=== PATIENT | female | born 1990 | race American Indian/Alaskan Native ===

== ENCOUNTER 2017-12-02 13:06 | Emergency (ER) | payer OTHER ==
[2017-12-02 13:44] VITALS: BP 141/99
[2017-12-02] MEDS ORDERED: SUBLIMAZE IV ONE (14:59)
--- NOTE | 2017-12-02 15:05 | Emergency Department Report ---
Blank Doc - Documentation Documentation: She presents with severe abdominal pain I will give IV pain medicine CBC BMP lipase and CT scan with contrast.
[2017-12-02 15:27] LABS: Basophils % (Auto) 0.1 % (0.0-1.8); Eosinophils % (Auto) 0.1 % (0.0-4.3); Lymphocytes % (Auto) 10.3 % (13.4-35.0); Mean Corpuscular HGB Conc 30 % (30-34); Mean Corpuscular Volume 81 fl (79-97); Monocytes # (Auto) 0.8 K/mm3 (0.0-0.8); Monocytes % (Auto) 4.2 % (0.0-7.3); Platelet Count 259 K/mm3 (140-440); Red Blood Count 3.84 M/mm3 (3.65-5.03); Red Cell Distribution Width 18.2 % (13.2-15.2)
[2017-12-02 15:28] LABS: Hematocrit 31.3 % (30.3-42.9); Hemoglobin 9.4 gm/dl (10.1-14.3); Mean Corpuscular Hemoglobin 25 pg (28-32)
[2017-12-02 15:30] LABS: Alanine Aminotransferase 9 units/L (7-56); BUN/Creatinine Ratio 15; Blood Urea Nitrogen 9 mg/dL (7-17); Calcium 9.1 mg/dL (8.4-10.2); Hemolysis Index 1
[2017-12-02] MEDS ORDERED: NACL 0.9% 1000 ML 1,000 ML IV ONE (15:41)
[2017-12-02] MEDS ORDERED: ZOFRAN IV ONE (15:41)
--- NOTE | 2017-12-02 16:03 | Emergency Department Report ---
ED Abdominal Pain HPI - General Chief Complaint: Abdominal Pain Stated Complaint: ABDOMINAL PAIN Time Seen by Provider: 12/02/17 14:57 Source: patient Mode of arrival: Ambulatory Limitations: No Limitations - History of Present Illness Initial Comments: She presents with severe abdominal pain I will give IV pain medicine CBC BMP lipase and CT scan with contrast. MD Complaint: abdominal pain Onset/Timin -: days(s) Location: diffuse, LLQ Radiation: LLQ, RLQ Migration to: RLQ Severity: moderate Severity scale (0 -10): 7 Quality: aching, sharp Consistency: constant Improves With: nothing Worsens With: movement Associated Symptoms: nausea. denies: vomiting, diarrhea, fever, chills, constipation, dysuria, hematemesis, hematuria - Related Data LMP (females 10-50): this week Previous Rx's Medication Instructions Recorded Last Taken Type Lidocaine Viscous 2% [Xylocaine 10 ml MM Q3HR PRN #240 ml 12/11/13 Unknown Rx Viscous 2%] Acetaminophen/Codeine [Tylenol 1 tab PO Q6H PRN #14 tab 02/05/15 Unknown Rx /Codeine # 3 tab] Ibuprofen [Motrin 600 MG tab] 600 mg PO Q8H PRN #60 tablet 02/05/15 Unknown Rx Sulfamethoxazole/Trimethoprim 1 each PO BID #14 tablet 02/05/15 Unknown Rx [Bactrim DS TAB] Amoxicillin/K Clav Tab [Augmentin 1 tab PO BID #14 tab 06/18/16 Unknown Rx 875 mg] Erythromycin [Erythromycin Ophth 1 applic OP QID #1 tube 06/18/16 Unknown Rx Oint] Doxycycline [Vibramycin CAP] 100 mg PO Q12HR #20 capsule 12/02/17 Unknown Rx metroNIDAZOLE [Flagyl] 500 mg PO Q12HR #20 tab 12/02/17 Unknown Rx Allergies Allergy/AdvReac Type Severity Reaction Status Date / Time No Known Allergies Allergy Verified 12/02/17 13:41 ED Review of Systems ROS: Stated complaint: ABDOMINAL PAIN Other details as noted in HPI Constitutional: denies: chills, fever Eyes: denies: eye pain, eye discharge, vision change ENT: denies: ear pain, throat pain Respiratory: denies: cough, shortness of breath, wheezing Cardiovascular: denies: chest pain, palpitations Endocrine: no symptoms reported Gastrointestinal: abdominal pain, nausea Genitourinary: denies: urgency, dysuria, discharge Musculoskeletal: denies: back pain, joint swelling, arthralgia Skin: denies: rash, lesions Neurological: denies: headache, weakness, paresthesias Psychiatric: denies: anxiety, depression Hematological/Lymphatic: denies: easy bleeding, easy bruising ED Past Medical Hx - Past Medical History Previous Medical History?: Yes Additional medical history: anemia - Surgical History Past Surgical History?: Yes Additional Surgical History: cyst removal - Social History Smoking Status: Current Every Day Smoker Substance Use Type: Alcohol - Medications Home Medications: Home Medications Medication Instructions Recorded Confirmed Last Taken Type Lidocaine Viscous 2% [Xylocaine 10 ml MM Q3HR PRN #240 ml 12/11/13 Unknown Rx Viscous 2%] Acetaminophen/Codeine [Tylenol 1 tab PO Q6H PRN #14 tab 02/05/15 Unknown Rx /Codeine # 3 tab] Ibuprofen [Motrin 600 MG tab] 600 mg PO Q8H PRN #60 tablet 02/05/15 Unknown Rx Sulfamethoxazole/Trimethoprim 1 each PO BID #14 tablet 02/05/15 Unknown Rx [Bactrim DS TAB] Amoxicillin/K Clav Tab [Augmentin 1 tab PO BID #14 tab 06/18/16 Unknown Rx 875 mg] Erythromycin [Erythromycin Ophth 1 applic OP QID #1 tube 06/18/16 Unknown Rx Oint] Doxycycline [Vibramycin CAP] 100 mg PO Q12HR #20 capsule 12/02/17 Unknown Rx metroNIDAZOLE [Flagyl] 500 mg PO Q12HR #20 tab 12/02/17 Unknown Rx ED Physical Exam - General Limitations: No Limitations General appearance: alert, in no apparent distress - Head Head exam: Present: atraumatic, normocephalic - Eye Eye exam: Present: normal appearance - ENT ENT exam: Present: mucous membranes moist - Neck Neck exam: Present: normal inspection - Respiratory Respiratory exam: Present: normal lung sounds bilaterally. Absent: respiratory distress, wheezes, stridor - Cardiovascular Cardiovascular Exam: Present: regular rate, normal rhythm. Absent: systolic murmur, diastolic murmur, rubs, gallop - GI/Abdominal GI/Abdominal exam: Present: tenderness (LLQ ), guarding (mild guarding LLQ ), normal bowel sounds. Absent: rebound, organomegaly, mass, bruit, pulsatile mass , hernia - Rectal Rectal exam: Present: deferred - Extremities Exam Extremities exam: Present: normal inspection, full ROM - Back Exam Back exam: Present: full ROM. Absent: tenderness, CVA tenderness (R), CVA tenderness (L), muscle spasm, paraspinal tenderness, vertebral tenderness, rash noted - Neurological Exam Neurological exam: Present: alert, oriented X3, CN II-XII intact, normal gait, reflexes normal - Psychiatric Psychiatric exam: Present: normal affect, normal mood - Skin Skin exam: Present: warm, dry, intact, normal color. Absent: rash ED Course Vital Signs 12/02/17 13:41 Temperature 98.5 F Pulse Rate 122 H Respiratory 16 Rate Blood Pressure 141/99 O2 Sat by Pulse 100 Oximetry ED Medical Decision Making - Lab Data Result diagrams: 12/02/17 15:05 12/02/17 15:05 Laboratory Tests 12/02/17 12/02/17 12/02/17 15:05 15:05 15:05 WBC 19.3 H RBC 3.84 Hgb 9.4 L Hct 31.3 MCV 81 MCH 25 L MCHC 30 RDW 18.2 H Plt Count 259 Lymph % (Auto) 10.3 L [place] % (Auto) 4.2 Eos % (Auto) 0.1 Baso % (Auto) 0.1 Lymph # 2.0 [place] # 0.8 Eos # 0.0 Baso # 0.0 Seg Neutrophils % 85.3 H Seg Neutrophils # 16.5 H Sodium 137 Potassium 3.4 L Chloride 102.3 Carbon Dioxide 23 Anion Gap 15 BUN 9 Creatinine 0.6 L Estimated GFR > 60 BUN/Creatinine Ratio 15 Glucose 99 Calcium 9.1 Total Bilirubin 0.40 AST 15 ALT 9 Alkaline Phosphatase 60 Total Protein 7.5 Albumin 4.0 Albumin/Globulin Ratio 1.1 Lipase HCG, Quant < 2 Urine Color Urine Turbidity Urine pH Ur Specific [place] Urine Protein Urine Glucose (UA) Urine Ketones Urine Blood Urine Nitrite Ur Reducing Substances Urine Bilirubin Urine Ictotest Urine Urobilinogen Ur Leukocyte Esterase Urine WBC (Auto) Urine RBC (Auto) U Epithel Cells (Auto) Urine Bacteria (Auto) Urine Mucus 12/02/17 12/02/17 15:46 Unknown WBC RBC Hgb Hct MCV MCH MCHC RDW Plt Count Lymph % (Auto) [place] % (Auto) Eos % (Auto) Baso % (Auto) Lymph # [place] # Eos # Baso # Seg Neutrophils % Seg Neutrophils # Sodium Potassium Chloride Carbon Dioxide Anion Gap BUN Creatinine Estimated GFR BUN/Creatinine Ratio Glucose Calcium Total Bilirubin AST ALT Alkaline Phosphatase Total Protein Albumin Albumin/Globulin Ratio Lipase 11 L HCG, Quant Urine Color Yellow Urine Turbidity Hazy Urine pH 5.0 Ur Specific [place] 1.024 Urine Protein 30 mg/dl Urine Glucose (UA) Neg Urine Ketones 20 Urine Blood Neg Urine Nitrite Neg Ur Reducing Substances Not Reportable Urine Bilirubin Neg Urine Ictotest Not Reportable Urine Urobilinogen < 2.0 Ur Leukocyte Esterase Lg Urine WBC (Auto) 66.0 H Urine RBC (Auto) 1.0 U Epithel Cells (Auto) 10.0 Urine Bacteria (Auto) 1+ Urine Mucus 3+ - Radiology Data Radiology results: report reviewed, image reviewed Normal CT Abd - Medical Decision Making She presents with severe abdominal pain I will give IV pain medicine CBC BMP lipase and CT scan with contrast. cbc: wbc: 19.5, cmp: normal, ua: luek, wbc, francine, ct abd: normal, pt denies vaginal exam: plan tx of UTI, Pyelo , pt does denies dysuria no hematuria no hesitency frequency , there is no hx of fibroid or ovarian cyst exam : abd LLQ tendernress relieved with fentynl given in ed, plan: rocephin Ivpb, azithromycin , dc to home with doxycyline and flagyl for pid coverage explained tx rationale to pt, pt verbalized agreement and understanding of same, will follow up with TELEVISION TECHNICIAN in 2-3 days. pt now agrees to Vaginal exam , pt cultures sent for GC/Ch. pt will follow up with TELEVISION TECHNICIAN in 2-3 days. Critical care attestation.: If time is entered above; I have spent that time in minutes in the direct care of this critically ill patient, excluding procedure time. ED Disposition Clinical Impression: PID (acute pelvic inflammatory disease) UTI (urinary tract infection) Qualifiers: Urinary tract infection type: acute cystitis Hematuria presence: without hematuria Qualified Code(s): N30.00 - Acute cystitis without hematuria Disposition: TO HOME OR SELFCARE Is pt being admited?: No Does the pt Need Aspirin: No Condition: Good Instructions: Abdominal Pain (ED), Pelvic Inflammatory Disease (ED) Prescriptions: Doxycycline [Vibramycin CAP] 100 mg PO Q12HR #20 capsule metroNIDAZOLE [Flagyl] 500 mg PO Q12HR #20 tab Referrals: PRIMARY CARE, [Primary Care Provider] - 3-5 Days Forms: Work/School Release Form(ED) Time of Disposition: 17:57
[2017-12-02 16:26] LABS: Bacteria,Urine 1+ /HPF (Negative); Bilirubin,Urine NEG (Negative); Blood,Urine NEG (Negative); Color,Urine Yellow (Yellow); Mucus,Urine 3+ /HPF; Urobilinogen,Urine < 2.0 mg/dL (<2.0)
--- NOTE | 2017-12-02 16:41 | Cat Scan Report ---
FINAL REPORT EXAM: CT ABDOMEN PELVIS W CON HISTORY: abdominal pain TECHNIQUE: CT abdomen and pelvis with intravenous contrast PRIORS: None. FINDINGS: No acute abnormality identified in the lung bases. No focal abnormality identified within the liver parenchyma. The spleen demonstrates normal size and attenuation. No pancreatic abnormalities seen. The kidneys demonstrate symmetric contrast enhancement. No evidence of hydronephrosis. The adrenal glands are unremarkable Abdominal aorta is normal in caliber. No pathologically enlarged lymph nodes are identified. No signs of free fluid or free air No evidence of small bowel dilatation. Colon is nondistended. No pericolonic inflammatory change. Urinary bladder is unremarkable. IMPRESSION: Negative. No acute abnormalities seen
[2017-12-02] MEDS ORDERED: ZITHROMAX PO ONE (16:53)
[2017-12-02] MEDS ORDERED: cefTRIAXone 1 GM in NACL 0.9% 20 ML IV ONE (17:30)
== END 2017-12-02 22:38 | disposition home or self-care (01) ==
LOC: ED 13:06
DX: N30.00 Acute cystitis without hematuria (principal); N73.9 Female pelvic inflammatory disease, unspecified; F17.200 Nicotine dependence, unspecified, uncomplicated
CPT/HCPCS: 36415; 74177; 80053; 81001; 83690; 84702; 85025; 87086; 96361; 96365; 96375; 99284; J0696; J2405; J3010; J7030; Q9967

== ENCOUNTER 2020-06-20 00:03 | Emergency (ER) | payer OTHER ==
[2020-06-20 01:24] LABS: Basophils # (Auto) 0.1 K/mm3 (0.0-0.1); Basophils % (Auto) 0.6 % (0.0-1.8); Eosinophils # (Auto) 0.1 K/mm3 (0.0-0.4); Eosinophils % (Auto) 0.6 % (0.0-4.3); Hematocrit 33.3 % (30.3-42.9); Hemoglobin 10.7 gm/dl (10.1-14.3); Lymphocytes # (Auto) 2.7 K/mm3 (1.2-5.4); Lymphocytes % (Auto) 28.8 % (13.4-35.0); Mean Corpuscular HGB Conc 32 % (30-34); Mean Corpuscular Volume 82 fl (79-97); Monocytes # (Auto) 0.6 K/mm3 (0.0-0.8); Monocytes % (Auto) 6.7 % (0.0-7.3); Platelet Count 330 K/mm3 (140-440); Red Blood Count 4.07 M/mm3 (3.65-5.03)
[2020-06-20 01:28] LABS: Red Cell Distribution Width 23.1 % (13.2-15.2)
[2020-06-20 01:37] LABS: Alanine Aminotransferase 10 units/L (7-56); Albumin 4.4 g/dL (3.9-5); Blood Urea Nitrogen 14 mg/dL (7-17); Calcium 9.6 mg/dL (8.4-10.2); Hemolysis Index 6
[2020-06-20 01:39] LABS: BUN/Creatinine Ratio 20
[2020-06-20 02:18] LABS: Bilirubin,Urine NEG (Negative); Blood,Urine NEG (Negative); Color,Urine Amber (Yellow); Mucus,Urine 3+ /HPF; Urobilinogen,Urine < 2.0 mg/dL (<2.0)
[2020-06-20] MEDS ORDERED: LIDOCAINE-MPF (1%) 10 MG/1 ML VIAL 5 ML INFILTRATI ONE (04:04)
--- NOTE | 2020-06-20 04:15 | Emergency Department Report ---
ED Female HPI - General Chief complaint: Abdominal Pain Stated complaint: LEFT FLANK PAIN/VAGINAL DISCHARG Time Seen by Provider: 06/20/20 04:04 Source: patient Mode of arrival: Ambulatory Limitations: No Limitations - History of Present Illness MD Complaint: vaginal discharge, possible STD Severity: moderate Quality: burning Consistency: constant Worsens with: urination Are you Now?: No Associated Symptoms: vaginal discharge. denies: vaginal bleeding, abdominal pain, nausea/vomiting, dysuria, hematuria, rash, syncope, weakness - Related Data Previous Rx's Medication Instructions Recorded Last Taken Type Lidocaine Viscous 2% [Xylocaine 10 ml MM Q3HR PRN #240 ml 12/11/13 Unknown Rx Viscous 2%] Acetaminophen/Codeine [Tylenol 1 tab PO Q6H PRN #14 tab 02/05/15 Unknown Rx /Codeine # 3 tab] Ibuprofen [Motrin 600 MG tab] 600 mg PO Q8H PRN #60 tablet 02/05/15 Unknown Rx Sulfamethoxazole/Trimethoprim 1 each PO BID #14 tablet 02/05/15 Unknown Rx [Bactrim DS TAB] Amoxicillin/K Clav Tab [Augmentin 1 tab PO BID #14 tab 06/18/16 Unknown Rx 875 mg] Erythromycin [Erythromycin Ophth 1 applic OP QID #1 tube 06/18/16 Unknown Rx Oint] DOXYCYCLINE Hyclate [Vibramycin 100 mg PO Q12HR #20 capsule 12/02/17 Unknown Rx CAP] metroNIDAZOLE [Flagyl] 500 mg PO Q12HR #20 tab 12/02/17 Unknown Rx Azithromycin [Zithromax TAB] 1,000 mg PO ONCE #2 tablet 06/20/20 Unknown Rx metroNIDAZOLE [Flagyl] 2,000 mg PO ONCE #4 tablet 06/20/20 Unknown Rx Allergies Allergy/AdvReac Type Severity Reaction Status Date / Time No Known Allergies Allergy Verified 12/02/17 13:41 ED Review of Systems ROS: Stated complaint: LEFT FLANK PAIN/VAGINAL DISCHARG Other details as noted in HPI Comment: All other systems reviewed and negative ED Past Medical Hx - Past Medical History Previous Medical History?: Yes Additional medical history: anemia - Surgical History Past Surgical History?: Yes Additional Surgical History: cyst removal - Social History Smoking Status: Current Every Day Smoker Substance Use Type: None - Medications Home Medications: Home Medications Medication Instructions Recorded Confirmed Last Taken Type Lidocaine Viscous 2% [Xylocaine 10 ml MM Q3HR PRN #240 ml 12/11/13 Unknown Rx Viscous 2%] Acetaminophen/Codeine [Tylenol 1 tab PO Q6H PRN #14 tab 02/05/15 Unknown Rx /Codeine # 3 tab] Ibuprofen [Motrin 600 MG tab] 600 mg PO Q8H PRN #60 tablet 02/05/15 Unknown Rx Sulfamethoxazole/Trimethoprim 1 each PO BID #14 tablet 02/05/15 Unknown Rx [Bactrim DS TAB] Amoxicillin/K Clav Tab [Augmentin 1 tab PO BID #14 tab 06/18/16 Unknown Rx 875 mg] Erythromycin [Erythromycin Ophth 1 applic OP QID #1 tube 06/18/16 Unknown Rx Oint] DOXYCYCLINE Hyclate [Vibramycin 100 mg PO Q12HR #20 capsule 12/02/17 Unknown Rx CAP] metroNIDAZOLE [Flagyl] 500 mg PO Q12HR #20 tab 12/02/17 Unknown Rx Azithromycin [Zithromax TAB] 1,000 mg PO ONCE #2 tablet 06/20/20 Unknown Rx metroNIDAZOLE [Flagyl] 2,000 mg PO ONCE #4 tablet 06/20/20 Unknown Rx ED Physical Exam - General Limitations: No Limitations General appearance: alert, in no apparent distress - Head Head exam: Present: atraumatic, normocephalic - Eye Eye exam: Present: normal appearance, PERRL, EOMI Pupils: Present: normal accommodation - ENT ENT exam: Present: mucous membranes moist - Neck Neck exam: Present: normal inspection - Respiratory Respiratory exam: Present: normal lung sounds bilaterally. Absent: respiratory distress - Cardiovascular Cardiovascular Exam: Present: regular rate, normal rhythm. 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 Absent: cervical discharge, vaginal bleeding Bi-manual exam: Absent: cervical motion tendernes, adnexal tenderness, uterine enlargement, uterine tenderness - Extremities Exam Extremities exam: Present: normal inspection - Back Exam Back exam: Present: normal inspection - Neurological Exam Neurological exam: Present: alert, oriented X3 - Psychiatric Psychiatric exam: Present: normal affect, normal mood - Skin Skin exam: Present: warm, dry, intact, normal color. Absent: rash ED Medical Decision Making - Lab Data Result diagrams: 06/20/20 00:30 06/20/20 00:30 Critical care attestation.: If time is entered above; I have spent that time in minutes in the direct care of this critically ill patient, excluding procedure time. ED Disposition Clinical Impression: Vaginitis, Exposure to STD Disposition: DC- TO HOME OR SELFCARE Is pt being admited?: No Does the pt Need Aspirin: No Condition: Stable Instructions: Abdominal Pain (ED), Safe Sex (ED), Chlamydia Infection (ED), Sexually Transmitted Diseases (ED) Prescriptions: metroNIDAZOLE [Flagyl] 2,000 mg PO ONCE #4 tablet Azithromycin [Zithromax TAB] 1,000 mg PO ONCE #2 tablet Referrals: PRIMARY CAREMD [Primary Care Provider] - 3-5 Days [facility] [Provider Group] - 3-5 Days [facility] [Provider Group] - 3-5 Days
== END 2020-06-20 04:55 | disposition home or self-care (01) ==
LOC: ED 00:03
DX: N76.0 Acute vaginitis (principal); F17.200 Nicotine dependence, unspecified, uncomplicated; Z20.2 Contact with and (suspected) exposure to infections with a predominantly sexual mode of transmission; Z86.2 Personal history of diseases of the blood and blood-forming organs and certain disorders involving the immune mechanism; Z79.899 Other long term (current) drug therapy
CPT/HCPCS: 36415; 80053; 81001; 84703; 85025; 87210; 87591; 96372; 99284; J0696